=== PATIENT | female | born 1940 | race Caucasian/White ===

== ENCOUNTER → 2016-11-25 | Outpatient (CLI) | payer OTHER ==
[~2016-11-25] MED LIST: ALEN70TA4 PO; ATOR-24 PO; CIPR-255 PO; CLC100X PO; CYCL0.05 OPL; CYCL0.05 OPR; DIPH-437 PO; GABA-113 PO; SULF-183 PO
[2016-12-01 06:07] LABS: CREATININE UR 86 MG/DL (20-320)
== END | disposition home or self-care (01) ==
LOC: C.LAB 07:26 → EDSTATUS 11:11
PROVIDERS: ATTEND Psychiatry & Neurology Neurology
DX: G60.9 Hereditary and idiopathic neuropathy, unspecified (principal)

== ENCOUNTER 2020-07-27 23:37 | Inpatient (IN) ==
[2020-07-28 00:50] LABS: Basophils # (auto) 0.01 K/uL (0-0.2); Basophils % (auto) 0.1 %; Eosinophils # (auto) 0.05 K/uL (0-0.5); Eosinophils % (auto) 0.6 %; Hematocrit (blood only) 40.6 % (37-47); Hemoglobin 13.7 g/dL (12.0-16.0); Immature Granulocytes # (auto) 0.01 K/uL (0.00-0.02); Immature Granulocytes % (auto) 0.1 %; Lymphocytes # (auto) 1.18 K/uL (1.2-3.4); Lymphocytes % (auto) 13.2 %; Mean Corpuscular Hemoglobin 31.3 pg (25-34); Mean Corpuscular Hgb Conc 33.7 g/dL (32-36); Mean Corpuscular Volume 92.7 fL (80-100); Mean Platelet Volume 10.5 fL (7.4-10.4); Monocytes # (auto) 0.88 K/uL (0.11-0.59); Monocytes % (auto) 9.9 %; Neutrophils % (auto) 76.1 %; Platelet Count 203 K/uL (130-400); RDW Coefficient of Variation 13.5 % (11.5-14.5); RDW Standard Deviation 45.7 fL (36.4-46.3); Red Blood Count 4.38 M/uL (4.2-5.4); White Blood Count 8.93 K/uL (4.8-10.8)
[2020-07-28 01:02] LABS: INR 1.1 (0.9-1.1); Prothrombin Time 11.2 Seconds (9.0-12.0)
[2020-07-28 01:10] LABS: Albumin Level 3.8 gm/dl (3.4-5.0); BUN Creatinine Ratio 17.4 (10-20); Calcium 9.8 mg/dl (8.5-10.1); Creatinine Clr Calc Pharmacy 60.9 ml/min; Est GFR (African American) 82.4; Est GFR (Non-African American) 71.1
[2020-07-28 01:13] LABS: Albumin Globulin Ratio 1.1 (0.9-2); Bilirubin,Total 0.8 mg/dl (0.2-1); Globulin 3.6 gm/dl (2.5-4.0); Total Protein 7.4 gm/dl (6.4-8.2)
--- NOTE | 2020-07-28 02:48 | Emergency Department Note ---
History of Present Illness General Chief complaint: Fall Stated complaint: FALL Time Seen by Provider: 07/27/20 23:44 Source: patient Mode of arrival: EMS Limitations: no limitations History of Present Illness Provider complaint: Fall, leg weakness Onset (ago): hour(s) Location: lower extremity Radiation: proximal Severity: moderate Pain Consistency: + constant Maximum Pain Intensity: 5 Quality: + constant Relieved By: + none Exacerbated By: + movement Associated symptoms: + denies other symptoms Treatments prior to arrival: none This is a 79-year-old female presents emergency department with concern for leg weakness following a fall at home. Patient states she has a significant history of peripheral neuropathy and spinal stenosis. States over the last several days she has had some increased pain in the right lower extremity which she has been applying a heating pad to. She denies any other worsening neuropathy symptoms or worsening back pain. No recent fevers or chills, no abdominal pain. Patient states she follows with Dr. Dempsey of neurology. She does not currently follow with a capital markets specialist. She states she has never had a prior fall. She states she had been seated on the couch, applying a heating pad to her proximal right lower extremity in the area of pain, and when she went to stand up she felt as though her legs became weak and crumpled underneath her and she fell landing on her right side. She denies any head trauma or loss of consciousness. Patient is not anticoagulated. Patient denies any concern for pain or injury secondary to the fall. Denies saddle anesthesia or incontinence. Pt seen during a time of high acuity and national emergency pandemic while wearing PPE. Home Medications Medication Instructions Recorded Confirmed Type cyclosporine [Restasis] See Rx Instructions .ROUTE .COMPLEX 07/28/20 07/28/20 History diphenhydramine-acetaminophen 2 tab PO HS PRN 07/28/20 07/28/20 History [Tylenol PM Extra Strength] doxycycline hyclate 50 mg PO QPM 07/28/20 07/28/20 History fluocinonide 1 applic TOPICAL UD 07/28/20 07/28/20 History gabapentin 600 mg PO TID 07/28/20 07/28/20 History naproxen 500 mg PO BID PRN 07/28/20 07/28/20 History omega-3 fatty acids [Fish Oil] 1,000 mg PO DAILY 07/28/20 07/28/20 History rosuvastatin 10 mg PO DAILY 07/28/20 07/28/20 History timolol maleate 1 drp OPR DAILY 07/28/20 07/28/20 History tramadol 50 mg PO TID PRN 07/28/20 07/28/20 History Allergies Allergy/AdvReac Type Severity Reaction Status Date / Time prednisone AdvReac Intermediate DIZZINESS Verified 07/28/20 01:11 Past Med/Surg History Medical History Dyslipidemia Neurogenic claudication due to lumbar spinal stenosis Surgical History History of appendectomy History of hysterectomy History of wisdom tooth extraction Hx of tonsillectomy Family History Sister Neuropathy Social History Smoking Status: Former smoker Hx Alcohol Use: Yes Alcohol type: wine Hx Substance Use: No Preferred Language: Vietnamese Communication Ability: Effective Curtain Drier Required: No Beliefs That Will Affect Care: None Current Living Situation: Alone Other Information That Helps Us Care for You: No Feels Safe at Home: Yes Safety Concerns: Feels Safe At This Time Assistive Devices: None Review of Systems See HPI for pertinent positives & negatives. and A total of 10 systems reviewed and were otherwise negative Physical Exam Vital Signs Vital Signs - 24 hr 07/27/20 23:48 07/28/20 01:59 Temperature 36.9 C Temperature Source Oral Pulse Rate 76 Pulse Rate [Finger] 68 Respiratory Rate 18 18 Blood Pressure 164/88 H Blood Pressure [Left Arm] 147/74 H Blood Pressure Mean 113 Blood Pressure Mean [Left Arm] 98 Pulse Oximetry 95 96 Oxygen Delivery Method Room Air Sepsis Recent Fever Within 48 Hours No Sepsis New/Unexplained Change in Mental Status N/A Sepsis Action Taken by Nursing No Action Required GENERAL: alert, well appearing, well nourished, no distress, non-toxic HEAD: nc/at EYE EXAM: normal conjunctiva, PERRL and EOM's grossly intact OROPHARYNX: no exudate, no erythema, lips, buccal mucosa, and tongue normal and mucous membranes are moist NECK: supple, no nuchal rigidity, no adenopathy, non-tender, FROM LUNGS: Clear to auscultation. Normal chest wall mechanics, no w/r/r HEART: no murmurs, S1 normal and S2 normal ABDOMEN: abdomen soft, non-tender, normo-active bowel sounds, no masses, no rebound or guarding. BACK: Back is symmetrical on inspection and there is no deformity, no midline tenderness, no CVA tenderness. SKIN: no rashes and no bruising UPPER EXTREMITIES: upper extremities are grossly normal. FROM, nml pulses b/l. LOWER EXTREMITIES: No pitting edema. FROM, nml pulses b/l. Patient states while sensation is intact in bilateral lower extremities that is dull, which is chronic and related to her peripheral neuropathy. No pain with palpation over bilateral hips or with palpation of the lower extremities. 5/5 plantar and dorsiflexion. Pain with flexion of right hip in the proximal RLE in the same area she has been having pain. Compartments are soft. No joint effusions. NEURO EXAM: Normal sensorium, cranial nerves II-XII grossly intact, normal spe ech, no gross weakness of arms, no gross weakness of legs. Gross sensation intact. Course Course 0330: Patient updated on results. Discussed disposition. Administered Medications Doxycycline Hyclate (Doxycycline Hyclate 50 Mg Cap) 50 mg PO QPM [facility] Stop: 08/27/20 20:59 Last Admin: 07/29/20 19:43 Dose: 50 mg Documented by: [id number] Admin: 07/28/20 20:24 Dose: 50 mg Documented by: [id number] Gabapentin (Gabapentin 600 Mg Tab) 600 mg PO TID [facility] Stop: 08/27/20 08:59 Last Admin: 07/29/20 19:43 Dose: 600 mg Documented by: [id number] Admin: 07/29/20 17:24 Dose: Not Given Documented by: [id number] Admin: 07/29/20 08:26 Dose: 600 mg Documented by: [id number] Admin: 07/28/20 20:24 Dose: 600 mg Documented by: [id number] Admin: 07/28/20 13:17 Dose: 600 mg Documented by: [id number] Admin: 07/28/20 08:23 Dose: 600 mg Documented by: [id number] Cefazolin Sodium (Ancef 1000mg) 1,000 mg in 7.5 mls @ 150 mls/hr IV Q8H NICOLE; Protocol Stop: 07/30/20 05:32 Last Admin: 07/29/20 22:02 Dose: 150 mls/hr Documented by: [id number] Sodium Chloride (Nss 1000ml) 1,000 mls @ 100 mls/hr IV .Q10H NICOLE Stop: 08/28/20 17:20 Last Admin: 07/29/20 17:59 Dose: 100 mls/hr Documented by: [id number] Lidocaine (Lidocaine 5% 1 Patch) 1 patch TD QAM NICOLE Stop: 08/27/20 04:29 Last Admin: 07/29/20 08:25 Dose: Not Given Documented by: [id number] Admin: 07/28/20 05:00 Dose: 1 patch Documented by: [id number] Miscellaneous (Remove Lidoderm Patch) 1 ea N/A DAILY@2100 [facility] Stop: 08/27/20 16:29 Last Admin: 07/29/20 19:44 Dose: Not Given Documented by: [id number] Admin: 07/28/20 15:35 Dose: 1 ea Documented by: [id number] Oxycodone HCl (Oxycodone Hcl Ir 5 Mg Tab (Immediate Release)) 5 - 10 mg PO Q4H PRN PRN Reason: Moderate-Severe Pain & Pre PT Stop: 08/12/20 17:20 Last Admin: 07/29/20 22:10 Dose: 5 mg Documented by: [id number] Rosuvastatin Calcium (Rosuvastatin Calcium 10 Mg Tab) 10 mg PO DAILY [facility] Stop: 08/27/20 08:59 Last Admin: 07/29/20 08:26 Dose: 10 mg Documented by: [id number] Admin: 07/28/20 08:23 Dose: 10 mg Documented by: [id number] Senna/Docusate Sodium (Docusate Sodium/Senna 50/8.6mg Tab) 2 tab PO HS NICOLE Stop: 08/28/20 20:59 Last Admin: 07/29/20 19:42 Dose: 2 tab Documented by: [id number] Timolol Maleate (Timolol Gfs 0.5% Oph Soln 74 Drops/5 Ml Btl) 1 drops OPR DAILY NICOLE Stop: 08/27/20 08:59 Last Admin: 07/29/20 08:26 Dose: 1 drops Documented by: [id number] Admin: 07/28/20 08:23 Dose: 1 drops Documented by: [id number] Tramadol HCl (Tramadol Hcl 50 Mg Tablet) 50 - 100 mg PO Q4H PRN PRN Reason: Moderate-Severe Pain & Pre PT Stop: 08/28/20 17:20 Last Admin: 07/29/20 19:43 Dose: 100 mg Documented by: [id number] Discontinued Medications Bupivacaine HCl/Epinephrine Bitart (Bupivacaine/Epinephrine 0.5% Mpf 1:200,000 30 Ml Vial) Confirm Administered Dose 30 ml .ROUTE .STK-MED ONE Stop: 07/29/20 13:20 Last Admin: 07/29/20 14:28 Dose: 25 ml Documented by: [id number] Cefazolin Sodium (Cefazolin 250 Mg/Ml 1 Gm Vial) Confirm Administered Dose 1,000 mg .ROUTE .STK-MED ONE Stop: 07/29/20 13:20 Last Admin: 07/29/20 14:29 Dose: 1,000 mg Documented by: [id number] Cefazolin Sodium (Cefazolin 2,000 Mg/15 Ml Iv Push) Confirm Administered Dose 2,000 mg IV .[employer]-MED ONE Stop: 07/29/20 13:27 Last Admin: 07/29/20 13:38 Dose: Not Given Documented by: [id number] Dexamethasone (Dexamethasone Sod Inj 4 Mg/Ml Vial) 10 mg IV NOW STA Stop: 07/28/20 03:45 Last Admin: 07/28/20 04:17 Dose: 10 mg Documented by: [id number] Fentanyl Citrate (Fentanyl Citrate 100 Mcg/2 Ml Vial) 25 mcg IV Q5M PRN PRN Reason: PACU Use Only-Pain Stop: 07/29/20 21:37 Last Admin: 07/29/20 16:04 Dose: 50 mcg Documented by: [id number] Admin: 07/29/20 15:55 Dose: 50 mcg Documented by: [id number] Hydromorphone HCl (Hydromorphone Inj 1 Mg/Ml Syringe) 0.25 mg IV Q5M PRN PRN Reason: PACU Use Only-Pain Stop: 07/29/20 21:37 Last Admin: 07/29/20 16:42 Dose: 0.25 mg Documented by: [id number] Admin: 07/29/20 16:33 Dose: 0.25 mg Documented by: [id number] Admin: 07/29/20 16:28 Dose: 0.25 mg Documented by: [id number] Admin: 07/29/20 16:22 Dose: 0.25 mg Documented by: [id number] Admin: 07/29/20 16:16 Dose: 0.25 mg Documented by: [id number] Admin: 07/29/20 16:09 Dose: 0.25 mg Documented by: [id number] Cefazolin Sodium (Ancef 2000mg) 2,000 mg in 15 mls @ 3.75 mls/min IV PREOP ONE Stop: 07/29/20 13:34 Last Admin: 07/29/20 13:35 Dose: 3.75 mls/min Documented by: [id number] Miscellaneous (Restasis - Order Awaiting Action) 1 ea N/A QS NICOLE Stop: 08/27/20 07:59 Last Admin: 07/29/20 16:23 Dose: Not Given Documented by: [id number] Admin: 07/29/20 08:24 Dose: Not Given Documented by: [id number] Admin: 07/28/20 23:07 Dose: Not Given Documented by: [id number] Admin: 07/28/20 15:36 Dose: Not Given Documented by: [id number] Admin: 07/28/20 07:20 Dose: Not Given Documented by: [id number] Miscellaneous ( Floseal Hemostatic Matrix 10ml) 10 ml TOP ONCE ONE Stop: 07/29/20 14:30 Last Admin: 07/29/20 15:25 Dose: 13 ml Documented by: [id number] Pneumococcal Polyvalent Vaccine (Pneumococcal Polysaccharides 25 Mcg/0.5 Ml Vial/Syr) 25 mcg IM .ONCE ONE Stop: 07/28/20 06:51 Last Admin: 07/28/20 08:22 Dose: 25 mcg Documented by: [id number] Tramadol HCl (Tramadol Hcl 50 Mg Tablet) 25 - 50 mg PO Q4H PRN PRN Reason: Pain Stop: 08/27/20 06:42 Last Admin: 07/28/20 20:24 Dose: 50 mg Documented by: [id number] Admin: 07/28/20 15:31 Dose: 50 mg Documented by: [id number] Admin: 07/28/20 11:22 Dose: 50 mg Documented by: [id number] Medical Decision Making Differential Diagnosis Differential diagnoses include major intracranial, cervical, spinal, thoracic, abdominal, pelvic and neurologic injury. Fracture, contusion, sprain, strain, laceration, abrasions included as well. Medical Records Attestation: I reviewed the patient's medical records. Home Medications Current Medication List: was personally reviewed by me Laboratory Data Attestation: I reviewed the patient's lab results. Result diagrams: 07/28/20 00:36 07/28/20 00:36 Lab Results 07/28/20 07/28/20 07/28/20 Range/Units 00:36 00:36 00:36 WBC 8.93 (4.8-10.8) K/uL RBC 4.38 (4.2-5.4) M/uL Hgb 13.7 (12.0-16.0) g/dL Hct 40.6 (37-47) % MCV 92.7 (80-100) fL MCH 31.3 (25-34) pg MCHC 33.7 (32-36) g/dL RDW Std Deviation 45.7 (36.4-46.3) fL RDW Coeff of Ry 13.5 (11.5-14.5) % Plt Count 203 (130-400) K/uL MPV 10.5 H (7.4-10.4) fL Immature Gran % (Auto) 0.1 % Neut % (Auto) 76.1 % Lymph % (Auto) 13.2 % Webb % (Auto) 9.9 % Eos % (Auto) 0.6 % Baso % (Auto) 0.1 % Neut # (Auto) 6.80 H (1.4-6.5) K/uL Lymph # (Auto) 1.18 L (1.2-3.4) K/uL Webb # (Auto) 0.88 H (0.11-0.59) K/uL Eos # (Auto) 0.05 (0-0.5) K/uL Baso # (Auto) 0.01 (0-0.2) K/uL Immature Gran # (Auto) 0.01 (0.00-0.02) K/uL PT 11.2 (9.0-12.0) Seconds INR 1.1 (0.9-1.1) Sodium 137 (136-145) mmol/L Potassium 4.0 (3.5-5.1) mmol/L Chloride 104 (98-107) mmol/L Carbon Dioxide 28 (21-32) mmol/L Anion Gap 6.0 (3-11) BUN 14 (7-18) mg/dl Creatinine 0.80 (0.6-1.2) mg/dl Est Cr Clr Drug Dosing 60.9 ml/min Est GFR ( Amer) 82.4 Est GFR (Non-Af Amer) 71.1 BUN/Creatinine Ratio 17.4 (10-20) Glucose 114 H (70-99) mg/dl Estimat Average Glucose mg/dl Hemoglobin A1c (4.5-5.6) % Calcium 9.8 (8.5-10.1) mg/dl Magnesium 2.0 (1.8-2.4) mg/dl Total Bilirubin 0.8 (0.2-1) mg/dl AST 12 L (15-37) U/L ALT 13 (12-78) U/L Alkaline Phosphatase 82 (45-117) U/L Total Protein 7.4 (6.4-8.2) gm/dl Albumin 3.8 (3.4-5.0) gm/dl Globulin 3.6 (2.5-4.0) gm/dl Albumin/Globulin Ratio 1.1 (0.9-2) COVID-19 Eval Order SARS-CoV-2 (PCR) (Negative) Influenza Type A (PCR) (Neg) Influenza Type B (PCR) (Neg) RSV (RT-PCR) (Neg) 07/28/20 07/28/20 07/28/20 Range/Units 00:36 04:31 04:31 WBC (4.8-10.8) K/uL RBC (4.2-5.4) M/uL Hgb (12.0-16.0) g/dL Hct (37-47) % MCV (80-100) fL MCH (25-34) pg MCHC (32-36) g/dL RDW Std Deviation (36.4-46.3) fL RDW Coeff of Ry (11.5-14.5) % Plt Count (130-400) K/uL MPV (7.4-10.4) fL Immature Gran % (Auto) % Neut % (Auto) % Lymph % (Auto) % [place] % (Auto) % Eos % (Auto) % Baso % (Auto) % Neut # (Auto) (1.4-6.5) K/uL Lymph # (Auto) (1.2-3.4) K/uL Webb # (Auto) (0.11-0.59) K/uL Eos # (Auto) (0-0.5) K/uL Baso # (Auto) (0-0.2) K/uL Immature Gran # (Auto) (0.00-0.02) K/uL PT (9.0-12.0) Seconds INR (0.9-1.1) Sodium (136-145) mmol/L Potassium (3.5-5.1) mmol/L Chloride (98-107) mmol/L Carbon Dioxide (21-32) mmol/L Anion Gap (3-11) BUN (7-18) mg/dl Creatinine (0.6-1.2) mg/dl Est Cr Clr Drug Dosing ml/min Est GFR ( Amer) Est GFR (Non-Af Amer) BUN/Creatinine Ratio (10-20) Glucose (70-99) mg/dl Estimat Average Glucose 105 mg/dl Hemoglobin A1c 5.3 (4.5-5.6) % Calcium (8.5-10.1) mg/dl Magnesium (1.8-2.4) mg/dl Total Bilirubin (0.2-1) mg/dl AST (15-37) U/L ALT (12-78) U/L Alkaline Phosphatase (45-117) U/L Total Protein (6.4-8.2) gm/dl Albumin (3.4-5.0) gm/dl Globulin (2.5-4.0) gm/dl Albumin/Globulin Ratio (0.9-2) COVID-19 Eval Order CovFluRsv at [facility] SARS-CoV-2 (PCR) NEGATIVE (Negative) Influenza Type A (PCR) Negative (Neg) Influenza Type B (PCR) Negative (Neg) RSV (RT-PCR) Negative (Neg) Imaging Data Radiologist's Impression: MRI L-spine: Comparison: MRI lumbar spine 01/25/2019 At L4-L5, there is a mild grade 1 anterolisthesis, small posterior disc bulge, and progressive severe facet arthropathy/ligamentous hypertrophy with resulting moderate canal and moderate to severe bilateral lateral recess stenosis, which are progressed from prior. New bilateral facet joint effusions and mild edema in the right L5 superior articular facet. Findings suggest inflammatory arthropathy. Mild to moderate right and mild left foraminal stenosis. Degenerative changes with resulting canal and foraminal stenosis at other levels are similar to prior. Post L5-S1 right hemilaminectomy and grade 1 retrolisthesis of L5 on S1, similar to prior. No evidence of acute fracture. Radiologist: Franklin Baeza MD MDM Narrative This is a 79 yo female with a hx of spinal stenosis and peripheral neuropathy who presents with b/l LE weakness and a fall this evening. Pt with decreased sensation from neuropathy but feels that is stable. Did have increased proximal RLE pain over the last several days. Pt with ROM of legs. Given prior hx and presentation tonight, labs drawn and pt sent for MR lumbar spine. MRI reveals progression of prior findings likely explaining the recent RLE pain and b/l leg weakness. Pt without fever, abd pain, n/v. I do not suspect acute vascular etiology, or GI pathology. No DM. VS stable throughout. Discussed my concern with pt's current condition and results at bedside and discussed options of disposition. Pt in agreement with plan for additional inpt mgmt and likely need for spine and neurology consult. CAse discussed with hospitalist. An order was placed for continuous cardiac monitoring. The monitor shows a rate of 59__ with _sinus bradycardia_ rhythm. Impression & Plan Back pain, Lumbar radiculopathy, Peripheral neuropathy, Fall Discharge Plan Visit Data Chief Complaint: Fall Stated Complaint: FALL ED Provider: Cecilia Aguillon Discharge Problem: Back pain, Lumbar radiculopathy, Peripheral neuropathy, Fall Patient Disposition: Admitted As Inpatient Discharge Instructions Interventions: ED Discharge Assessment Last Done: 07/28/20 06:41 Discharge Problem: Back pain Qualifiers: Back pain location: low back pain Chronicity: chronic Back pain laterality: bilateral Sciatica presence: with sciatica Sciatica laterality: bilateral sciatica Qualified Code(s): M54.42 - Lumbago with sciatica, left side Peripheral neuropathy Qualifiers: Peripheral neuropathy type: polyneuropathy, unspecified Qualified Code(s): G62 .9 - Polyneuropathy, unspecified Fall Qualifiers: Encounter type: initial encounter Qualified Code(s): W19.XXXA - Unspecified fall, initial encounter
[2020-07-28] MEDS ORDERED: DEXAMETHASONE SOD INJ 4 MG/ML VIAL IV STA (03:44)
--- NOTE | 2020-07-28 04:48 | History & Physical Report ---
Date of Service July 28, 2020 Assessment & Plan (1) Lumbar radiculopathy: hx lumbar spinal stenosis/peripheral neuropathy as per records Worsening RLE weakness symptoms leading to fall Progressive disease with inflammation on initial MRI read. Situational hypertension Hyperglycemia rule out DM Past tobacco abuse OBS [facility] Orthopedic spine consult Re: Worsening lumbar radiculopathy, abnormal MRI Patient requests that [facility] contact her [facility] neurologist (Dr. Dempsey) to discuss case if surgery recommended. Analgesia Check hemoglobin A1c DVT prophylaxis. SCDs Re: Possible procedure Full code Text document was generated using [employer] voice recognition software. It may contain grammatical or spelling errors. Kindly contact undersigned for clarification of any documentation item in question. History of Present Illness Chief Complaint: Fall, right leg weakness Primary Care Provider: Jose Antonio Wilde MD History obtained from patient and records. Medical history significant for lumbar spinal stenosis status post surgery, peripheral neuropathy, past tobacco abuse. Patient has had chronic low back pain from lumbar spinal stenosis with superimposed lumbar radiculopathy for some time now. Neurogenic claudication limiting prolonged standing and walking. Patient seen [facility] neurology outpatient. 2 days ago, patient noted right leg weakness somewhat more than usual. Usual low back pain with some pain shooting down the right leg worse on motion. No fever, no chills. No unusual incontinence as per patient. Patient was trying to get out of her recliner last night when her legs gave out causing her to fall on her right side. No chest pain, no S OB, no headache, no LOC. Patient had trouble getting up. Patient brought to the ER for evaluation by EMS. IV Decadron administered at the ER. Medical History as above Surgical History : Appendectomy, carpal tunnel surgery, parathyroid adenoma resection, back surgery, cataract surgery, tonsillectomy, SHARRI Family History : Breast cancer, hypertension Personal/Social history : Past tobacco abuse, occasional EtOH intake, [employer] store employee Allergies Allergy/AdvReac Type Severity Reaction Status Date / Time prednisone AdvReac Intermediate DIZZINESS Verified 07/28/20 01:11 Home Medications Medication Instructions Recorded Confirmed Type cyclosporine [Restasis] See Rx Instructions .ROUTE .COMPLEX 07/28/20 07/28/20 History diphenhydramine-acetaminophen 2 tab PO HS PRN 07/28/20 07/28/20 History [Tylenol PM Extra Strength] doxycycline hyclate 50 mg PO QPM 07/28/20 07/28/20 History fluocinonide 1 applic TOPICAL UD 07/28/20 07/28/20 History gabapentin 600 mg PO TID 07/28/20 07/28/20 History naproxen 500 mg PO BID PRN 07/28/20 07/28/20 History omega-3 fatty acids [Fish Oil] 1,000 mg PO DAILY 07/28/20 07/28/20 History rosuvastatin 10 mg PO DAILY 07/28/20 07/28/20 History timolol maleate 1 drp OPR DAILY 07/28/20 07/28/20 History tramadol 50 mg PO TID PRN 07/28/20 07/28/20 History Past Med/Surg History Surgical History History of appendectomy History of hysterectomy History of wisdom tooth extraction Hx of tonsillectomy Family History Sister Neuropathy Social History Smoking Status: Former smoker Preferred Language: Guatemalan Feels Safe at Home: Yes Review of Systems Review of Systems: As per HPI, all 10 systems reviewed, all other ROS negative Physical Exam Physical Exam: GENERAL: Comfortable, pleasant, slightly hard of hearing, no respiratory distress SKIN: Normal color, warm HEENT: Bespectacled, [place] palpebral conjunctivae, no ptosis, moist buccal mucosa NECK : Supple, no tenderness CHEST : CTA, no tenderness HEART : RRR, no obvious murmurs ABDOMEN: Some distention, nontender BACK : low back tenderness, positive SLR right greater than the left EXTREMITIES : No LE swelling/tenderness, no other conspicuous deformities noted NEUROLOGIC : Coherent, no facial asymmetry, MMTS BUE 4/5, BLE 3/5 L>R, gait and stance not assessed Results & Data Results & Data ([facility]) Vital Signs (Past 12 Hours) Vital Signs Temp Pulse Pulse Resp BP BP Pulse Ox 07/28/20 04:18 64 16 131/75 97 07/28/20 01:59 68 18 147/74 H 96 07/27/20 23:48 36.9 C 76 18 164/88 H 95 Laboratory Results Laboratory Results WBC 8.93 K/uL (4.8-10.8) 07/28/20 00:36 RBC 4.38 M/uL (4.2-5.4) 07/28/20 00:36 Hgb 13.7 g/dL (12.0-16.0) 04 00:36 Hct 40.6 % (37-47) 07/28/20 00:36 MCV 92.7 fL (80-100) 07/28/20 00:36 MCH 31.3 pg (25-34) 07/28/20 00:36 MCHC 33.7 g/dL (32-36) 07/28/20 00:36 RDW Std Deviation 45.7 fL (36.4-46.3) 07/28/20 00:36 RDW Coeff of Ry 13.5 % (11.5-14.5) 07/28/20 00:36 Plt Count 203 K/uL (130-400) 07/28/20 00:36 MPV 10.5 fL (7.4-10.4) H 07/28/20 00:36 Immature Gran % (Auto) 0.1 % 07/28/20 00:36 Neut % (Auto) 76.1 % 07/28/20 00:36 Lymph % (Auto) 13.2 % 07/28/20 00:36 [place] % (Auto) 9.9 % 07/28/20 00:36 Eos % (Auto) 0.6 % 07/28/20 00:36 Baso % (Auto) 0.1 % 07/28/20 00:36 Neut # (Auto) 6.80 K/uL (1.4-6.5) H 07/28/20 00:36 Lymph # (Auto) 1.18 K/uL (1.2-3.4) L 07/28/20 00:36 [place] # (Auto) 0.88 K/uL (0.11-0.59) H 07/28/20 00:36 Eos # (Auto) 0.05 K/uL (0-0.5) 07/28/20 00:36 Baso # (Auto) 0.01 K/uL (0-0.2) 07/28/20 00:36 Immature Gran # (Auto) 0.01 K/uL (0.00-0.02) 07/28/20 00:36 PT 11.2 Seconds (9.0-12.0) 07/28/20 00:36 INR 1.1 (0.9-1.1) 07/28/20 00:36 Sodium 137 mmol/L (136-145) 07/28/20 00:36 Potassium 4.0 mmol/L (3.5-5.1) 07/28/20 00:36 Chloride 104 mmol/L (98-107) 07/28/20 00:36 Carbon Dioxide 28 mmol/L (21-32) 07/28/20 00:36 Anion Gap 6.0 (3-11) 07/28/20 00:36 BUN 14 mg/dl (7-18) 07/28/20 00:36 Creatinine 0.80 mg/dl (0.6-1.2) 07/28/20 00:36 Est Cr Clr Drug Dosing 60.9 ml/min 07/28/20 00:36 Est GFR ( Amer) 82.4 07/28/20 00:36 Est GFR (Non-Af Amer) 71.1 07/28/20 00:36 BUN/Creatinine Ratio 17.4 (10-20) 07/28/20 00:36 Glucose 114 mg/dl (70-99) H 07/28/20 00:36 Calcium 9.8 mg/dl (8.5-10.1) 07/28/20 00:36 Magnesium 2.0 mg/dl (1.8-2.4) 07/28/20 00:36 Total Bilirubin 0.8 mg/dl (0.2-1) 07/28/20 00:36 AST 12 U/L (15-37) L 07/28/20 00:36 ALT 13 U/L (12-78) 07/28/20 00:36 Alkaline Phosphatase 82 U/L (45-117) 07/28/20 00:36 Total Protein 7.4 gm/dl (6.4-8.2) 07/28/20 00:36 Albumin 3.8 gm/dl (3.4-5.0) 07/28/20 00:36 Globulin 3.6 gm/dl (2.5-4.0) 07/28/20 00:36 Albumin/Globulin Ratio 1.1 (0.9-2) 07/28/20 00:36 COVID-19 Eval Order CovFluRsv at [facility] 07/28/20 04:31 Diagnostic Findings MRI lumbar spine initial read: At L4-L5, there is mild grade 1 anterolisthesis, small posterior disc bulge, and progressive severe facet arthropathy/ligamentous hypertrophy with resulting moderate canal and moderate to severe bilateral lateral recess stenoses, which are progressed from prior. New bilateral facet joint effusions and mild edema in the right L5 superior articular facet. Findings suggest inflammatory arthropathy. Mild to moderate right and mild left foraminal stenosis. Degenerative changes with resulting canal and foraminal stenoses at other levels are similar to prior. Post L5-S1 right hemilaminectomy and grade 1 retrolisthesis of L5 on S1, similar to prior. No evidence of acute fracture.
[2020-07-28] MEDS: LIDOCAINE 5% 1 PATCH TD SCH (05:00)
[2020-07-28 05:20] LABS: Influenza A virus by PCR Negative (Neg); Influenza B virus by PCR Negative (Neg); RSV by PCR Negative (Neg); SARS CoV2 RNA(COVID-19) InHosp NEGATIVE (Negative)
[2020-07-28] MEDS ORDERED: MoRPHine SULFATE 4 MG/ML 1 ML CARP\\VIAL IV PRN (06:43)
[2020-07-28] MEDS ORDERED: ACETAMINOPHEN 325 MG TAB PO PRN (06:43)
[2020-07-28] MEDS ORDERED: LORazepam 0.25 MG/0.5 ML VIAL IV PRN (06:43)
[2020-07-28] MEDS ORDERED: PROMETHAZINE HCL 12.5 MG in SODIUM CHLORIDE 0.9% 50 ML IV PRN (06:43)
[2020-07-28 06:47] LABS: Estimated Average Glucose 105 mg/dl; Hemoglobin A1C 5.3 % (4.5-5.6)
[2020-07-28] MEDS ORDERED: PNEUMOCOCCAL ADMINISTRATION CHARGE ONE (06:50)
[2020-07-28] MEDS ORDERED: PNEUMOCOCCAL POLYSACCHARIDES 25 MCG/0.5 ML VIAL/SYR IM ONE (06:50)
--- NOTE | 2020-07-28 07:55 | Magnetic Resonance Report ---
MR lumbar spine wo con CLINICAL HISTORY: Back pain. Leg weakness. TECHNIQUE: Sagittal and axial T1, T2 and STIR images were obtained. COMPARISON STUDY: 01/25/2019 OBSERVATIONS: The vertebral bodies and posterior elements appear intact. There is no abnormal bony signal present t o suggest a marrow replacement process. L1-2: There is a circumferential disc bulge. There is no significant spinal or foraminal stenosis L2-3: There is a circumferential disc bulge. There is mild spinal stenosis. There is no significant f oraminal narrowing L3-4: There is a circumferential disc bulge. There is mild spinal stenosis. There is no significant f oraminal narrowing. L4-5: There is minimal anterolisthesis of L4 and L5. There is a circumferential disc bulge. There is facet joint ligamentous hypertrophy. There is moderate to severe spinal stenosis. The thecal sac jaylen ures 4.3 mm in AP diameter L5-S1: There is a circumferential disc bulge. There is no significant spinal stenosis. There is mild bilateral foraminal narrowing. Postsurgical changes are suspected with evidence of a prior right post erior hemilaminectomy The conus medullaris and cauda equina appear normal. IMPRESSION: 1. Multilevel spondylytic changes. The study is most significant for progressive moderate to severe s sarah stenosis at the L4-5 level. ACT 112: Negative or not required by law. Electronically signed by: Joel Arias M.D. 07/28/2020 7:53 AM
[2020-07-28] MEDS: TIMOLOL GFS 0.5% OPH SOLN 74 DROPS/5 ML BTL OPR SCH (08:23)
[2020-07-28] MEDS: ROSUVASTATIN CALCIUM 10 MG TAB PO SCH (08:23)
[2020-07-28] MEDS: GABAPENTIN 600 MG TAB PO SCH ×3 (08:23→20:24)
[2020-07-28] MEDS: traMADol HCL 50 MG TABLET PO PRN ×3 (11:22→20:24)
--- NOTE | 2020-07-28 14:47 | Electrocardiogram Report ---
Test Reason : Blood Pressure : / mmHG Vent. Rate : 078 BPM Atrial Rate : 078 BPM P-R Int : 150 ms QRS Dur : 088 ms QT Int : 378 ms P-R-T Axes : 070 062 047 degrees QTc Int : 430 ms Poor data quality, interpretation may be adversely affected Normal sinus rhythm Abnormal ECG When compared with ECG of 04-DEC-2002 09:08, No significant change was found Confirmed by Petar Dale ([id number]) on 07/28/2020 2:47:44 PM Referred By: REFERRED SELF Confirmed By:Petar Dale
--- NOTE | 2020-07-28 15:34 | Orthopedic Consultation ---
Date of Consultation July 28, 2020 Assessment & Plan (1) Neurogenic claudication due to lumbar spinal stenosis: Patient's MRI does demonstrate worsening lumbar spinal stenosis. She has spondylolisthesis at L4-L5 to space collapse L5-S1 with retrolisthesis and central disc protrusion. She has severe central lateral recess disease at L4-L5 with obvious instability. She is noted significant decline over the past year she is interested in surgical invention. This would require a lumbar decompression and fusion L4-5 possibly L5-S1. Risk benefits pros cons and alternatives were outlined in detail. Risk include but not limited to anesthesia blindness stroke paralysis nerve damage blood loss requiring transfusion infection requiring reoperation postop with a marked improvement of her neurogenic claudication. At this time we will make her n.p.o. after midnight we will plan for surgery tomorrow. Present on Admission?: Yes History of Present Illness Reason for Consultation: Back and bilateral leg pain with weakness Attending Physician: Ruma Marley MD History of Present Illness Is a very pleasant 79-year-old female that presents with marked weakness in her lower extremities. She fell recently as her right leg gave way. She notes history of inability to stand and ambulate for any distance secondary to bilateral leg pain and weakness. She must sit regularly to obtain relief. Allergies Allergy/AdvReac Type Severity Reaction Status Date / Time prednisone AdvReac Intermediate DIZZINESS Verified 07/28/20 01:11 Home Medications Medication Instructions Recorded Confirmed Type cyclosporine [Restasis] See Rx Instructions .ROUTE .COMPLEX 07/28/20 07/28/20 History diphenhydramine-acetaminophen 2 tab PO HS PRN 07/28/20 07/28/20 History [Tylenol PM Extra Strength] doxycycline hyclate 50 mg PO QPM 07/28/20 07/28/20 History fluocinonide 1 applic TOPICAL UD 07/28/20 07/28/20 History gabapentin 600 mg PO TID 07/28/20 07/28/20 History naproxen 500 mg PO BID PRN 07/28/20 07/28/20 History omega-3 fatty acids [Fish Oil] 1,000 mg PO DAILY 07/28/20 07/28/20 History rosuvastatin 10 mg PO DAILY 07/28/20 07/28/20 History timolol maleate 1 drp OPR DAILY 04/26/21 04/26/21 History tramadol 50 mg PO TID PRN 07/28/20 07/28/20 History Patient History Surgical History History of appendectomy History of hysterectomy History of wisdom tooth extraction Hx of tonsillectomy Family History Sister Neuropathy Social History Smoking Status: Former smoker Hx Alcohol Use: Yes Alcohol type: wine Hx Substance Use: No Preferred Language: [place] Communication Ability: 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 She does exhibits plus out of 5 plantar flexion dorsiflexion quadriceps bilaterally. She does have peripheral neuropathy and some numbness to the feet bilaterally. She has no gross tension signs. Deep tendon reflexes are diminished. Results & Data ([facility]) Vital Signs (Past 12 Hours) Vital Signs Temp Pulse Pulse Resp BP BP Pulse Ox 07/28/20 12:00 36.6 C 62 18 122/71 94 07/28/20 09:59 65 07/28/20 06:43 37.0 C 67 18 158/83 H 97 07/28/20 06:23 62 16 141/81 H 94 07/28/20 05:02 64 16 145/69 H 96 07/28/20 04:18 64 16 131/75 97
--- NOTE | 2020-07-28 16:24 | Anesthesiology Consultation ---
Date of Service July 28, 2020 Assessment & Plan Chart Review Chart Review: Acceptable Risk for Surgery and Patient NOT seen in Pre Admission Testing History Surgery Operation Date: 07/29/20 13:45 Proposed Procedures p L4-L5 Possible L5-S1 Lumbar Decompression Fusion - Dany Chau DO Height/Weight Height: 5 ft 4 in Weight: 69.853 kg Allergies Allergy/AdvReac Type Severity Reaction Status Date / Time prednisone AdvReac Intermediate DIZZINESS Verified 07/28/20 01:11 Medications Home Medications Medication Instructions Recorded Confirmed Last Taken cyclosporine [Restasis] See Rx Instructions .ROUTE .COMPLEX 07/28/20 07/28/20 Unknown diphenhydramine-acetaminophen 2 tab PO HS PRN 07/28/20 07/28/20 Unknown [Tylenol PM Extra Strength] doxycycline hyclate 50 mg PO QPM 07/28/20 07/28/20 Unknown fluocinonide 1 applic TOPICAL UD 07/28/20 07/28/20 Unknown gabapentin 600 mg PO TID 07/28/20 07/28/20 Unknown naproxen 500 mg PO BID PRN 07/28/20 07/28/20 Unknown omega-3 fatty acids [Fish Oil] 1,000 mg PO DAILY 07/28/20 07/28/20 Unknown rosuvastatin 10 mg PO DAILY 07/28/20 07/28/20 Unknown timolol maleate 1 drp OPR DAILY 07/28/20 07/28/20 Unknown tramadol 50 mg PO TID PRN 07/28/20 07/28/20 Unknown Active Medications Generic Name Dose Route Start Last Admin Trade Name Freq PRN Reason Stop Dose Admin Gabapentin 600 mg 07/28/20 09:00 07/28/20 13:17 Gabapentin 600 Mg Tab PO 08/27/20 08:59 600 mg TID NICOLE Administration Lidocaine 1 patch 07/28/20 04:30 07/28/20 05:00 Lidocaine 5% 1 Patch TD 08/27/20 04:29 1 patch QAM NICOLE Administration Miscellaneous 1 ea 07/28/20 16:30 07/28/20 15:35 Remove Lidoderm Patch N/A 08/27/20 16:29 1 ea DAILY@2100 NICOLE Administration Miscellaneous 1 ea 07/28/20 08:00 07/28/20 15:36 Restasis - Order Awaiting Action N/A 08/27/20 07:59 Not Given QS NICOLE Rosuvastatin Calcium 10 mg 07/28/20 09:00 07/28/20 08:23 Rosuvastatin Calcium 10 Mg Tab PO 08/27/20 08:59 10 mg DAILY NICOLE Administration Timolol Maleate 1 drops 07/28/20 09:00 07/28/20 08:23 Timolol Gfs 0.5% Oph Soln 74 Drops/5 Ml Btl OPR 08/27/20 08:59 1 drops DAILY NICOLE Administration Tramadol HCl 25 - 50 mg 07/28/20 06:43 07/28/20 15:31 Tramadol Hcl 50 Mg Tablet PO 08/27/20 06:42 50 mg Q4H PRN Administration Pain Past Family History Family History Sister Neuropathy Past Surgical History Surgical History History of appendectomy History of hysterectomy History of wisdom tooth extraction Hx of tonsillectomy Social History Smoking Status: Former smoker Hx Alcohol Use: Yes Alcohol type: wine alcohol intake frequency: a few times a month Hx Substance Use: No Physical Exam Vital Signs Last Vital Signs Temp 36.6 C 07/28/20 16:06 Pulse 75 07/28/20 16:06 Resp 20 07/28/20 16:06 BP 122/69 07/28/20 16:06 Pulse Ox 93 07/28/20 16:06 Testing Laboratory Results 07/28/20 00:36 07/28/20 00:36 PT 11.2 Seconds (9.0-12.0) 07/28/20 00:36 INR 1.1 (0.9-1.1) 07/28/20 00:36 Hemoglobin A1c 5.3 % (4.5-5.6) 07/28/20 00:36
--- NOTE | 2020-07-28 16:37 | Communication Note ---
Date of Service: July 28, 2020 Currently resting comfortably. Reports pain is currently okay. Appreciate orthopedics input. Plan to go for surgical intervention tomorrow.
[2020-07-28] MEDS: DOXYCYCLINE HYCLATE 50 MG CAP PO SCH (20:24)
--- NOTE | 2020-07-29 08:18 | Anesthesiology Consultation ---
Date of Service July 29, 2020 Assessment & Plan (1) Encounter for pre-operative examination: Chart Review Chart Review: Acceptable Risk for Surgery and Patient NOT seen in Pre Admission Testing Consults Requested none History Surgery Operation Date: 07/29/20 13:45 Proposed Procedures p L4-L5 Possible L5-S1 Lumbar Decompression Fusion - Dany Chau DO Height/Weight Height: 5 ft 4 in Weight: 69.853 kg Allergies Allergy/AdvReac Type Severity Reaction Status Date / Time prednisone AdvReac Intermediate DIZZINESS Verified 07/28/20 01:11 Medications Home Medications Medication Instructions Recorded Confirmed Last Taken cyclosporine [Restasis] See Rx Instructions .ROUTE .COMPLEX 07/28/20 07/28/20 Unknown diphenhydramine-acetaminophen 2 tab PO HS PRN 07/28/20 07/28/20 Unknown [Tylenol PM Extra Strength] doxycycline hyclate 50 mg PO QPM 07/28/20 07/28/20 Unknown fluocinonide 1 applic TOPICAL UD 07/28/20 07/28/20 Unknown gabapentin 600 mg PO TID 07/28/20 07/28/20 Unknown naproxen 500 mg PO BID PRN 07/28/20 07/28/20 Unknown omega-3 fatty acids [Fish Oil] 1,000 mg PO DAILY 07/28/20 07/28/20 Unknown rosuvastatin 10 mg PO DAILY 07/28/20 07/28/20 Unknown timolol maleate 1 drp OPR DAILY 07/28/20 07/28/20 Unknown tramadol 50 mg PO TID PRN 07/28/20 07/28/20 Unknown Active Medications Generic Name Dose Route Start Last Admin Trade Name Raymundoq PRN Reason Stop Dose Admin Doxycycline Hyclate 50 mg 07/28/20 21:00 07/28/20 20:24 Doxycycline Hyclate 50 Mg Cap PO 08/27/20 20:59 50 mg QPM NICOLE Administration Gabapentin 600 mg 07/28/20 09:00 07/28/20 20:24 Gabapentin 600 Mg Tab PO 08/27/20 08:59 600 mg TID NICOLE Administration Lidocaine 1 patch 07/28/20 04:30 07/28/20 05:00 Lidocaine 5% 1 Patch TD 08/27/20 04:29 1 patch QAM NICOLE Administration Miscellaneous 1 ea 07/28/20 16:30 07/28/20 15:35 Remove Lidoderm Patch N/A 08/27/20 16:29 1 ea DAILY@2100 NICOLE Administration Miscellaneous 1 ea 07/28/20 08:00 07/28/20 23:07 Restasis - Order Awaiting Action N/A 08/27/20 07:59 Not Given QS NICOLE Rosuvastatin Calcium 10 mg 07/28/20 09:00 07/28/20 08:23 Rosuvastatin Calcium 10 Mg Tab PO 08/27/20 08:59 10 mg DAILY NICOLE Administration Timolol Maleate 1 drops 07/28/20 09:00 07/28/20 08:23 Timolol Gfs 0.5% Oph Soln 74 Drops/5 Ml Btl OPR 08/27/20 08:59 1 drops DAILY NICOLE Administration Tramadol HCl 25 - 50 mg 07/28/20 06:43 07/28/20 20:24 Tramadol Hcl 50 Mg Tablet PO 08/27/20 06:42 50 mg Q4H PRN Administration Pain Past Medical History Medical History Dyslipidemia Neurogenic claudication due to lumbar spinal stenosis Past Family History Family History Sister Neuropathy Past Surgical History Surgical History History of appendectomy History of hysterectomy History of wisdom tooth extraction Hx of tonsillectomy Social History Smoking Status: Former smoker Hx Alcohol Use: Yes Alcohol type: wine alcohol intake frequency: a few times a month Hx Substance Use: No Physical Exam Vital Signs Last Vital Signs Temp 36.5 C 07/29/20 07:23 Pulse 57 L 07/29/20 07:23 Resp 16 07/29/20 07:23 BP 144/79 H 07/29/20 07:23 Pulse Ox 96 07/29/20 07:23 Testing Laboratory Results 07/28/20 00:36 07/28/20 00:36 PT 11.2 Seconds (9.0-12.0) 07/28/20 00:36 INR 1.1 (0.9-1.1) 07/28/20 00:36 Hemoglobin A1c 5.3 % (4.5-5.6) 07/28/20 00:36 Electrocardiogram Date: 07/28/20 Findings: + NSR @ (78) ST and T wave abnormality similar to 2003 EKG
[2020-07-29] MEDS: LIDOCAINE 5% 1 PATCH TD SCH (08:25)
[2020-07-29] MEDS: ROSUVASTATIN CALCIUM 10 MG TAB PO SCH (08:26)
[2020-07-29] MEDS: TIMOLOL GFS 0.5% OPH SOLN 74 DROPS/5 ML BTL OPR SCH (08:26)
[2020-07-29] MEDS: GABAPENTIN 600 MG TAB PO SCH ×3 (08:26→19:43)
[2020-07-29] MEDS ORDERED: LIDOCAINE HCL 2% 2 ML VIAL/AMP(20MG/ML) INFIL ONE (12:53)
[2020-07-29] MEDS ORDERED: ONDANSETRON INJ 2 MG/ML 2 ML VIAL ONE (12:53)
[2020-07-29] MEDS ORDERED: ROCURONIUM BROMIDE 10 MG/ML 5 ML VIAL IV ONE (12:53)
[2020-07-29] MEDS ORDERED: fentaNYL citrate 100 MCG/2 ML VIAL ONE (12:53)
[2020-07-29] MEDS ORDERED: PROPOFOL IV EMULSION 10 MG/ML 20 ML VIAL IV ONE (12:53)
[2020-07-29] MEDS ORDERED: BUPIVACAINE/EPINEPHRINE 0.5% MPF 1:200,000 30 ML VIAL ONE (13:19)
--- NOTE | 2020-07-29 13:24 | History & Physical Bridge Note ---
Date of Service July 29, 2020 History & Physical Bridge Note I have examined the patient, reviewed the History & Physical and in the interval since the performance of the History & Physical I have noted the following changes of clinical significance: no changes noted Lumbar decompression fusion L4-5, possible L5-S1
[2020-07-29] MEDS ORDERED: ceFAZolin 2,000 MG/15 ML IV PUSH IV ONE (13:26)
[2020-07-29] MEDS ORDERED: ceFAZolin 2000MG 2,000 MG/15 ML SYR IV ONE (13:31)
[2020-07-29] MEDS ORDERED: ePHEDrine sulfate 50 MG/ML AMP IV PRN (13:37)
[2020-07-29] MEDS ORDERED: MEPERIDINE HCL 25 MG/ML CARP/VIAL IV PRN (13:37)
[2020-07-29] MEDS ORDERED: ATROPINE SULFATE 0.1 MG/ML 10ML SYR IV PRN (13:37)
[2020-07-29] MEDS ORDERED: ONDANSETRON INJ 2 MG/ML 2 ML VIAL IV PRN ×2 (13:37→17:21)
[2020-07-29] MEDS ORDERED: LABETALOL HCL IV 5 MG/ML 20ML IV PRN (13:37)
[2020-07-29] MEDS ORDERED: PHENYLEPHRINE 100MCG/ML 5ML SYR IV PRN (13:37)
--- NOTE | 2020-07-29 14:14 | Hospitalist Progress Note ---
Date of Service July 29, 2020 Assessment & Plan (1) Lumbar radiculopathy: hx lumbar spinal stenosis/peripheral neuropathy as per records Worsening RLE weakness symptoms leading to fall Progressive disease with inflammation on initial MRI read. Situational hypertension Hyperglycemia rule out DM Past tobacco abuse Appreciate orthopedics input. Want to go for lumbar decompression and fusion L4-L5 and possibly L5-S1 today. Remains NPO. Morphine and Dilaudid for pain control. DVT prophylaxis. SCDs Re: Possible procedure Full code Text document was generated using [email or web address] voice recognition software. It may contain grammatical or spelling errors. Kindly contact undersigned for clarification of any documentation item in question. Admission and Anticipated Discharge Date Admission Date: July 28, 2020 Subjective Patient comfortably. Reports the pain is currently well controlled. States only hurts if she gets up and moves around. Rest of the review of system is negative. Remains n.p.o., plan to go for surgery this afternoon. Review of Systems Review of Systems: All systems reviewed & are unremarkable except as noted in HPI & below Physical Exam Physical Exam: General: A&Ox3 HENT: NCAT, MMM, EOMI Eyes: PERRLA Neck: Supple, normal range of motion CVS: normal rate and rhythm Resp: b/l good breath sounds Abdomen: Soft, ND/NT Extremities: No c/c/e Neuro: face symmetric, no focal deficit Skin: warm and dry MSK: no joint swelling/erythema Results & Data Results & Data ([facility]) Vital Signs (Past 12 Hours) Vital Signs Temp Pulse Resp BP BP Pulse Ox 07/29/20 13:14 36.7 C 70 16 166/82 H 97 07/29/20 07:23 36.5 C 57 L 16 144/79 H 96
[2020-07-29] MEDS ORDERED: FLOSEAL HEMOSTATIC MATRIX 10ML TOP ONE (14:29)
[2020-07-29] MEDS ORDERED: GLYCOPYRROLATE 0.2 MG/ML VIAL ONE (15:19)
[2020-07-29] MEDS ORDERED: NEOSTIGMINE METHYLSULFATE 5 MG/5 ML SYR ONE (15:19)
--- NOTE | 2020-07-29 15:28 | Operative Report ---
Post Operative Report Pre & Post Diagnosis Operation Date: 07/29/20 13:45 Pre-Op Diagnosis: Neurogenic claudication due to lumbar spinal stenosis Spondylolisthesis L4-L5 Post-Op Diagnosis: Same I identified the patient and participated in the time-out.: Yes Procedure Operation Date: 07/29/20 13:45 Actual Procedures #1 lumbar decompression with bilateral medial facetectomies and foraminotomies L3-4, L4-5 and L5-S1. #2 posterior spinal fusion L4-5 L5-S1. #3 placement posterior instrumentation L4-5 L5-S1. #4 interbody fusion L4-5 L5-S1. #5 placement of peek cage 14 x 26 mm at L4-5 and 11 x 26 mm at L4-5 S1. #6 placement of infuse collagen sponge, master graft and local autograft in the posterior gutters. Placement of I factor and interbody spaces. #7 placement of locally harvested morselized autograft in the posterior lateral gutters. Surgeon Dany Chau, Hazmat Tanker Driver Alona Mosher Estimated Blood Loss 150 Findings Consistent with Post-Op Diagnosis Specimens None Indications This is a 79-year-old female the presents the emergency room with marked decline in status inability to ambulate with weakness and bilateral leg pain. Subsequently she is here for urgent decompression fusion. Description of Procedure Patient was met with identified informed consent obtained. Patient was then taken to the operative suite underwent ablation placed in prone position Herson table top Silviano frame. All bony prominences well-padded eyes inspected to ensure no external pressure placed upon the. This point the lumbar spine was prepped and draped in a sterile fashion. Sharp dissection with the assistance of Bovie cartilage from down to and exposing the lamina and transverse processes of L4-L5 and sacral ala bilaterally. From caudal cephalad fashion complete laminectomy L5 L4 and partial laminectomy L3 was performed including bilateral medial facetectomies and foraminotomies addressing severe spinal stenosis. Pedicle screws were then placed in L4-L5 and S1 levels bilaterally with assistance of fluoroscopy and the proper sized lanie placed. By way the tra nsforaminal portion right complete discectomy of L5-S1 was performed endplates curetted to subcortical bleeding bone and a 8 x 22 mm peek cage filled with I factor tapped in position. Then proceeded L4-L5 and again by way of a transforaminal approach on right a complete discectomy was performed endplates curetted to subcortically bone and a 12 x 22 mm peek cage filled with I factor tapped in position. The rods were then locked in final position bilaterally. Transverse processes of L4-L5 and sacral ala burred to subcortical bleeding bone. Infuse collagen sponge master graft local autograft was placed in the posterior gutters. 15 round JUSTIN drain inserted. The incision was then closed with 1 Vicryl in the fascia 2-0 Vicryl subcutaneously and 4 Monocryl for final skin closure. Steri-Strip sterile dressings placed. Patient will continue PACU stable condition. Please note spinal cord monitoring was utilized at the procedure no changes noted. Lastly Alona Mosher was present at the entire surgery involved the patient positioning complex portions of the surgery and final skin closure. I attest to the content of the Intraoperative Record and any orders documented therein. Any exceptions are noted below.
--- NOTE | 2020-07-29 15:40 | Fluoroscopy Report ---
FL lumbar spine 2-3V CLINICAL HISTORY: L4-L5 DECOMPRESSION AND FUSION COMPARISON STUDY: MRI dated 07/28/2020 FLUOROSCOPY TIME: 35 seconds. NUMBER OF FLUOROSCOPIC IMAGES: 2 FINDINGS: 2 intraoperative fluoroscopic spot images reveal postsurgical changes of discectomies inter body fusions at the L4-5 and L5-S1 levels. There is posterior spinal fixation with L4-S1 pedicle scre ws and adjoining spinal rods IMPRESSION: Postsurgical changes of an L4-S1 spinal decompression and fusion. ACT 112: Negative or not required by law. Electronically signed by: Joel Arias M.D. 07/29/2020 3:38 PM
[2020-07-29] MEDS: fentaNYL citrate 100 MCG/2 ML VIAL IV PRN ×2 (15:55→16:04)
[2020-07-29] MEDS ORDERED: fentaNYL citrate 100 MCG/2 ML VIAL IV PRN (16:00)
[2020-07-29] MEDS: HYDROmorphone INJ 1 MG/ML SYRINGE IV PRN ×6 (16:09→16:42)
--- NOTE | 2020-07-29 16:27 | Anesthesiology Progress Note ---
Date of Service July 29, 2020 Anesthesia Post Procedure Vital Signs Vital Signs: Temp Pulse Pulse Pulse Resp BP BP 07/29/20 16:25 51 L 12 153/89 H 07/29/20 16:15 55 L 12 145/97 H 07/29/20 16:05 66 13 143/83 H 07/29/20 15:55 69 16 179/96 H 07/29/20 15:49 96.8 F L 71 15 139/99 07/29/20 13:14 98.1 F 70 16 166/82 H 07/29/20 07:23 97.7 F 57 L 16 144/79 H 07/28/20 23:36 98.1 F 73 16 157/69 H 07/28/20 22:43 97.9 F 66 16 115/73 07/28/20 19:33 97.9 F 69 18 129/73 07/28/20 17:47 77 Pulse Ox 07/29/20 16:25 99 07/29/20 16:15 100 07/29/20 16:05 100 07/29/20 15:55 100 07/29/20 15:49 100 07/29/20 13:14 97 07/29/20 07:23 96 07/28/20 23:36 96 07/28/20 22:43 96 07/28/20 19:33 95 07/28/20 17:47 Pain Intensity Upper Back: Pain Intensity: 3 Transfer of Care Handoff Completed per policy Notes Mental Status: alert / awake / arousable and participated in evaluation Patient Amnestic to Procedure: Yes Nausea / Vomiting: adequately controlled Pain: adequately controlled Airway Patency, RR, SpO2: stable & adequate BP & HR: stable & adequate Hydration State: stable & adequate Anesthetic Complications: no major complications apparent and Pt Satisfied with anesthetic care
[2020-07-29] MEDS ORDERED: DO NOT ADMINISTER PNEUMOCOCCAL VACCINE PRN (17:21)
[2020-07-29] MEDS ORDERED: PROMETHAZINE HCL 12.5 MG in SODIUM CHLORIDE 0.9% 50 ML IV PRN (17:21)
[2020-07-29] MEDS ORDERED: ALUMINUM/MAGNESIUM SUSP 30 ML UDC PO PRN (17:21)
[2020-07-29] MEDS ORDERED: diphenhydrAMINE Capsule 25 MG CAP PO PRN (17:21)
[2020-07-29] MEDS ORDERED: ACETAMINOPHEN 500 MG TAB PO PRN (17:21)
[2020-07-29] MEDS ORDERED: FAMOTIDINE 20 MG TAB PO PRN (17:21)
[2020-07-29] MEDS ORDERED: MAGNESIUM HYDROXIDE SUSP 30 ML UDC PO PRN (17:21)
[2020-07-29] MEDS ORDERED: HYDROmorphone INJ 1 MG/ML SYRINGE IV PRN (17:21)
[2020-07-29] MEDS ORDERED: METOCLOPRAMIDE HCL INJ 5 MG/ML 2 ML VIAL IV PRN (17:21)
[2020-07-29] MEDS ORDERED: LORazepam 0.5 MG/1 ML VIAL IV PRN (17:21)
[2020-07-29] MEDS ORDERED: ACETAMINOPHEN 1,000 MG/100 ML VIAL IV PRN (17:21)
[2020-07-29] MEDS ORDERED: SOD PHOSPHATE/SOD BIPHOSPHATE ENEMA 132 ML BTL PR PRN (17:21)
[2020-07-29] MEDS ORDERED: LORazepam 0.5 MG TAB PO PRN (17:21)
[2020-07-29] MEDS ORDERED: HYDROmorphone INJ 0.5 MG/0.5 ML SYR IV PRN (17:21)
[2020-07-29] MEDS ORDERED: bisacodyL 10 MG SUPP PR PRN (17:21)
[2020-07-29] MEDS ORDERED: NALOXONE HCL 0.4 MG/1 ML VIAL/CARP IV PRN (17:21)
[2020-07-29] MEDS ORDERED: DO NOT ADMINISTER FLU VACCINE PRN (17:21)
[2020-07-29] MEDS ORDERED: ONDANSETRON 4 MG OD TAB PO PRN (17:21)
[2020-07-29] MEDS ORDERED: hydrOXYzine HCl 25 MG TAB PO PRN (17:21)
[2020-07-29] MEDS: SODIUM CHLORIDE 0.9% 1000ML 1,000 ML IV SCH (17:59)
[2020-07-29] MEDS: DOCUSATE SODIUM/SENNA 50/8.6MG TAB PO SCH (19:42)
[2020-07-29] MEDS: DOXYCYCLINE HYCLATE 50 MG CAP PO SCH (19:43)
[2020-07-29] MEDS: traMADol HCL 50 MG TABLET PO PRN (19:43)
[2020-07-29] MEDS: ceFAZolin 1000MG 1,000 MG/7.5 ML SYR IV SCH (22:02)
[2020-07-29] MEDS: oxyCODONE HCL IR 5 MG TAB (IMMEDIATE RELEASE) PO PRN (22:10)
[2020-07-30] MEDS: ceFAZolin 1000MG 1,000 MG/7.5 ML SYR IV SCH (04:38)
[2020-07-30] MEDS: SODIUM CHLORIDE 0.9% 1000ML 1,000 ML IV SCH (04:39)
[2020-07-30] MEDS: traMADol HCL 50 MG TABLET PO PRN ×2 (04:39→20:16)
[2020-07-30] MEDS: POLYETHYLENE (MIRALAX) 17 GM PACK PO SCH ×4 (05:58→22:54)
[2020-07-30 07:50] LABS: Hematocrit (blood only) 33.4 % (37-47); Hemoglobin 11.5 g/dL (12.0-16.0); Immature Granulocytes # (auto) 0.01 K/uL (0.00-0.02); Immature Granulocytes % (auto) 0.1 %; Lymphocytes # (auto) 1.04 K/uL (1.2-3.4); Lymphocytes % (auto) 12.7 %; Mean Corpuscular Hemoglobin 31.4 pg (25-34); Mean Corpuscular Hgb Conc 34.4 g/dL (32-36); Mean Corpuscular Volume 91.3 fL (80-100); Mean Platelet Volume 10.5 fL (7.4-10.4); Monocytes # (auto) 0.93 K/uL (0.11-0.59); Monocytes % (auto) 11.3 %; Neutrophils # (auto) 6.24 K/uL (1.4-6.5); Neutrophils % (auto) 75.9 %; Platelet Count 185 K/uL (130-400); RDW Coefficient of Variation 13.3 % (11.5-14.5); RDW Standard Deviation 44.4 fL (36.4-46.3); Red Blood Count 3.66 M/uL (4.2-5.4); White Blood Count 8.22 K/uL (4.8-10.8)
[2020-07-30] MEDS: oxyCODONE HCL IR 5 MG TAB (IMMEDIATE RELEASE) PO PRN ×4 (07:50→22:54)
[2020-07-30] MEDS: GABAPENTIN 600 MG TAB PO SCH ×3 (07:51→20:16)
[2020-07-30] MEDS: ROSUVASTATIN CALCIUM 10 MG TAB PO SCH (07:52)
[2020-07-30] MEDS: TIMOLOL GFS 0.5% OPH SOLN 74 DROPS/5 ML BTL OPR SCH (07:52)
[2020-07-30] MEDS: LIDOCAINE 5% 1 PATCH TD SCH (07:52)
[2020-07-30 08:31] LABS: BUN Creatinine Ratio 27.7 (10-20); Creatinine Clr Calc Pharmacy 75.3 ml/min; Est GFR (African American) 101.9; Est GFR (Non-African American) 87.9; Potassium 4.2 mmol/L (3.5-5.1)
--- NOTE | 2020-07-30 13:20 | Orthopedic Progress Note ---
Date of Service July 30, 2020 Assessment & Plan (1) Neurogenic claudication due to lumbar spinal stenosis: Admission and Anticipated Discharge Date Admission Date: July 28, 2020 This time encouraged her to get out of bed and sit in a chair for all meals. Also to initiate physical therapy. We will monitor JUSTIN output hopefully discharge home in the next few days. Subjective Patient complaining primarily of back pain. She has resolution of all leg pain. Physical Exam Physical Exam: Patient is in bed. She has good strength testing lower extremities. Results & Data ([facility]) Vital Signs (Past 12 Hours) Vital Signs Temp Pulse Pulse Resp BP Pulse Ox 07/30/20 11:00 94 07/30/20 07:14 36.8 C 65 16 109/63 92 07/30/20 03:33 36.6 C 62 16 114/66 98
--- NOTE | 2020-07-30 14:19 | Hospitalist Progress Note ---
Date of Service July 30, 2020 Assessment & Plan (1) Lumbar radiculopathy: hx lumbar spinal stenosis/peripheral neuropathy as per records Status post lumbar decompression and fusion surgery Postoperative day 1 Appreciate orthopedics input. Patient has been recovering well on post surgery, back pain /radicular pain has significantly improved after surgery Acute blood loss anemia: Hemoglobin drop noted from 1311 Secondary to postoperative status Patient denies of any symptoms of dizzy spell or lightheadedness Follow labs, no indication for blood transfusion Admission and Anticipated Discharge Date Admission Date: July 28, 2020 Subjective Follow-up visit for status post lumbar decompression surgery. Patient sitting on edge of the bed, said she is doing good, worked with physical therapy with walker, Managed to ambulate with minimal back pain Wants to have the Arguelles catheter taken out No shortness of breath no dyspnea on exertion, no cough no fever or chills JUSTIN drain present draining serosanguineous fluid Review of Systems Review of Systems: All systems reviewed & are unremarkable except as noted in Subjective Physical Exam Physical Exam: Physical exam: General: No acute distress, alert awake oriented x3 HEENT: PERRLA, EOMI, Heart: Regular S1-S2, no carotid bruit, no JVD, no lower extremity edema Lungs: Clear to auscultate, no wheeze or rales Abdomen: Soft nontender, no organomegaly Extremity: Status post lumbar decompression surgery/JUSTIN drain present Neuro: No focal neurological deficit normal speech, normal visual field, Motor strength : normal both upper and lower extremity, sensation intact Psych: Alert awake oriented x3, normal affect Results & Data Results & Data ([facility]) Vital Signs (Past 12 Hours) Vital Signs Temp Pulse Pulse Resp BP Pulse Ox 07/30/20 11:00 94 07/30/20 07:14 36.8 C 65 16 109/63 92 07/30/20 03:33 36.6 C 62 16 114/66 98
[2020-07-30] MEDS: DOCUSATE SODIUM/SENNA 50/8.6MG TAB PO SCH (20:16)
[2020-07-30] MEDS: DOXYCYCLINE HYCLATE 50 MG CAP PO SCH (20:16)
[2020-07-31] MEDS: POLYETHYLENE (MIRALAX) 17 GM PACK PO SCH ×4 (05:37→23:53)
[2020-07-31] MEDS: traMADol HCL 50 MG TABLET PO PRN ×3 (05:37→17:42)
[2020-07-31] MEDS: oxyCODONE HCL IR 5 MG TAB (IMMEDIATE RELEASE) PO PRN ×2 (07:59→20:03)
[2020-07-31] MEDS: LIDOCAINE 5% 1 PATCH TD SCH (08:00)
[2020-07-31] MEDS: TIMOLOL GFS 0.5% OPH SOLN 74 DROPS/5 ML BTL OPR SCH (08:00)
[2020-07-31] MEDS: GABAPENTIN 600 MG TAB PO SCH ×3 (08:00→20:05)
[2020-07-31] MEDS: ROSUVASTATIN CALCIUM 10 MG TAB PO SCH (08:01)
--- NOTE | 2020-07-31 08:39 | Orthopedic Progress Note ---
Date of Service July 31, 2020 Assessment & Plan (1) Neurogenic claudication due to lumbar spinal stenosis: Admission and Anticipated Discharge Date Admission Date: July 28, 2020 This time and will continue with physical therapy monitor JUSTIN output. Hopefully she can discharge home Tuesday or Tuesday with home health. Subjective Patient's back pain is controlled leg pain improved Physical Exam Physical Exam: Patient is good strength testing appears comfortable. Results & Data ([facility]) Vital Signs (Past 12 Hours) Vital Signs Temp Pulse Resp BP Pulse Ox 07/31/20 07:40 37.2 C 77 15 110/68 90 07/30/20 22:48 37.5 C 75 16 98/59 L 92
--- NOTE | 2020-07-31 16:12 | Hospitalist Progress Note ---
Date of Service July 31, 2020 Assessment & Plan (1) Lumbar radiculopathy: hx lumbar spinal stenosis/peripheral neuropathy as per records Status post lumbar decompression and fusion surgery Postoperative day2 Appreciate orthopedics input. Patient has been recovering well on post surgery, back pain /radicular pain has significantly improved after surgery Plan to discharge home in next 1 to 2 days Acute blood loss anemia: Hemoglobin drop noted from 1311 Secondary to postoperative status MARIO globin has remained stable since Admission and Anticipated Discharge Date Admission Date: July 28, 2020 Subjective Doing much better, no back pain at rest, able to participate physical therapy, Feels pain at the surgical site gets aggravated with ambulation, gets relief with pain meds No fever or chills Review of Systems Review of Systems: All systems reviewed & are unremarkable except as noted in Subjective Physical Exam Physical Exam: Physical exam: General: No acute distress, alert awake oriented x3 HEENT: PERRLA, EOMI, Heart: Regular S1-S2, no carotid bruit, no JVD, no lower extremity edema Lungs: Clear to auscultate, no wheeze or rales Abdomen: Soft nontender, no organomegaly Extremity: Status post lumbar decompression surgery/JUSTIN drain present-with minimal drainage Neuro: No focal neurological deficit normal speech, normal visual field, Motor strength : normal both upper and lower extremity, sensation intact Psych: Alert awake oriented x3, normal affect Results & Data Results & Data ([facility]) Vital Signs (Past 12 Hours) Vital Signs Temp Pulse Resp BP Pulse Ox 07/31/20 15:08 36.5 C 77 16 128/77 90 07/31/20 07:40 37.2 C 77 15 110/68 90
[2020-07-31] MEDS: DOXYCYCLINE HYCLATE 50 MG CAP PO SCH (20:05)
[2020-07-31] MEDS: DOCUSATE SODIUM/SENNA 50/8.6MG TAB PO SCH (20:05)
[2020-08-01] MEDS: oxyCODONE HCL IR 5 MG TAB (IMMEDIATE RELEASE) PO PRN ×3 (00:03→08:43)
[2020-08-01] MEDS: POLYETHYLENE (MIRALAX) 17 GM PACK PO SCH ×2 (05:54→12:08)
[2020-08-01 06:40] LABS: Hemoglobin 11.9 g/dL (12.0-16.0)
[2020-08-01] MEDS: ROSUVASTATIN CALCIUM 10 MG TAB PO SCH (07:57)
[2020-08-01] MEDS: TIMOLOL GFS 0.5% OPH SOLN 74 DROPS/5 ML BTL OPR SCH (07:57)
[2020-08-01] MEDS: GABAPENTIN 600 MG TAB PO SCH ×2 (07:57→13:03)
[2020-08-01] MEDS: LIDOCAINE 5% 1 PATCH TD SCH (07:58)
[2020-08-01] MEDS ORDERED: bisacodyL 5 MG TABEC PO ONE (09:59)
--- NOTE | 2020-08-01 13:29 | Discharge Summary ---
Date of Service August 01, 2020 Admission HPI Per Admitting Provider History obtained from patient and records. Medical history significant for lumbar spinal stenosis status post surgery, peripheral neuropathy, past tobacco abuse. Patient has had chronic low back pain from lumbar spinal stenosis with superimposed lumbar radiculopathy for some time now. Neurogenic claudication limiting prolonged standing and walking. Patient seen [facility] neurology outpatient. 2 days ago, patient noted right leg weakness somewhat more than usual. Usual low back pain with some pain shooting down the right leg worse on motion. No fever, no chills. No unusual incontinence as per patient. Patient was trying to get out of her recliner last night when her legs gave out causing her to fall on her right side. No chest pain, no S OB, no headache, no LOC. Patient had trouble getting up. Patient brought to the ER for evaluation by EMS. IV Decadron administered at the ER. Medical History as above Surgical History : Appendectomy, carpal tunnel surgery, parathyroid adenoma resection, back surgery, cataract surgery, tonsillectomy, SHARRI Family History : Breast cancer, hypertension Personal/Social history : Past tobacco abuse, occasional EtOH intake, [employer] store employee Principal Diagnosis Lumbar spinal stenosis with neurogenic claudication Discharge Data Allergies Allergy/AdvReac Type Severity Reaction Status Date / Time prednisone AdvReac Intermediate DIZZINESS Verified 07/28/20 01:11 Consultations 07/28/20 03:48 ED Decision to Admit Stat 07/28/20 06:43 Consult Orthopedic Surgery Routine Procedures Performed Operation Date: 07/29/20 13:45 Actual Procedures p L4-L5, L5-S1 Lumbar Decompression Fusion(Not Applicable) - Dany Chau DO Ordered Studies 07/28/20 00:09 MR lumbar spine wo con Urgent 07/29/20 13:45 FL lumbar spine 2-3V Routine Hospital Course (1) Lumbar radiculopathy: hx lumbar spinal stenosis/peripheral neuropathy as per records Status post lumbar decompression and fusion surgery recovering well post op Appreciate orthopedics input. Patient has been recovering well on post surgery, back pain /radicular pain has significantly improved after surgery stable to be transferrred to rehab Acute blood loss anemia: Hemoglobin drop noted from 1311 Secondary to postoperative status H&H has remained stable since pt is discharged to [facility] today Total Time Total Time Spent Total Time Spent (In Minutes): 35 mins Total Time Includes: Examination of the Patient, Discharge Planning and Medication Reconciliation Discharge Plan Discharge Items Patient Disposition: Transfer Inpatient Rehab Fac Reason For Visit: LUMBAR RIDICULOPATHY Discharge Diagnosis: Lumbar spinal stenosis with neurogenic claudication Activity: As commented below Non-emergency contact: Primary Care Provider Call non-emergency contact if: you have any medication questions Follow-up/Referrals: Dany Chau DO [Surgeon] - Jose Antonio Wilde MD [Primary Care Provider] - 08/07/20 10:40 am (Date & Time 08/07/2020 10:40 AM Provider Jose Antonio Wilde MD Department Family Practice [facility] ) Diet: Regular Addtl Attending Provider Instructions: ACTIVITY RECOMMENDATIONS: SELF CARE INSTRUCTIONS AFTER THORACIC/LUMBAR FUSIONS 1. You may walk to your tolerance. It is good exercise for your legs and back. Expect some back and intermittent leg aches and pains. 2. You may perform "counter-top" level activities (make a sandwich, karl with a project, etc.). 3. No bending or lifting of more than 10 pounds or back twisting of any nature (roll like a log when turning in bed). 4. You may ride in a car for 20-30 minutes at a time. No driving until after your first visit with your doctor. 5. Frequent changes of position and restricting sitting to 30 minutes at a time will help limit the amount of back spasms and stiffness you may experience. 6. You may discontinue the use of ambulatory aids (cane, crutches, etc.) once your strength and confidence allow. 7. You may campus coordinator the shower and let water strike your incision when you arrive home at least once daily. Do not take a tub bath, sit in a hot tub or go into a swimming pool until after your first recheck in the office. SPECIAL CARE INSTRUCTIONS: VERY IMPORTANT TO READ AND REVIEW A. Your surgical incision has been closed with a cosmetic suture under the skin that will dissolve in about 6 weeks. In 14 days, you can use a pair of clean scissors and cut the suture that is left outside of the skin at the ends of your incision. 1. The small skin tapes can be removed 7 days after surgery if they have not fallen off by that point. 2. You may keep the wound open to air as much as possible to promote healing after post-op day number 5 unless told otherwise by your doctor. 3. If you think the wound looks like it is becoming infected (redness or worsening drainage) and/or you are experiencing fever, chill or worsening back pain and muscle spasms, contact the office so that we may evaluate you as soon as possible. B. Complications are uncommon, but please contact us if you have any signs or symptoms of: 1. wound infection (fever higher than 102.5 degrees F, redness, separation of wound, drainage, or increasing pain from the incision) 2. blood clots in legs (pain, swelling, redness and warmth in legs) 3. urinary tract infection (fever higher than 102.5 degrees F, burning upon urination or increased frequency of urination) 4. nerve problems (inability to walk on your toes or heels, numbness, loss of bowel or bladder control) 5. any other symptoms that concern you C. Please call the office at if you have any concerns or questions about your operation or recovery. D. No smoking! Smoking drastically decreases the chance of a solid fusion. E. Do not take any anti-inflammatory medications (Indocin, Advil, Motrin, Aspirin, Naprosyn, etc.) as these may inhibit the chance of a solid fusion. Tylenol is okay to take for pain. MANAGING PAIN AFTER SPINAL SURGERY 1. Narcotic medication is intended for short-term use and will be provided for surgical pain. Surgical pain usually lasts for a period of 4-6 weeks. Narcotic medication includes Percocet, Vicodin, Darvocet, Tylenol #3 or Lortab. 2. Longer-term pain is more appropriately treated with non-narcotic medication such as Tylenol ES. 3. Muscle spasm is not appropriately treated with narcotics. Muscle relaxers such as Soma, Flexeril or Skelaxin can be used along with Tylenol ES. 4. Remember that we all live with some "aches and pains". This is not unusual or uncommon after an injury or as we get older. a. Back pain is expected and may include muscle spasms for 4 to 6 weeks after surgery. The pain should gradually improve. If the pain worsens for no apparent reason, please contact the office. b. Intermittent leg pain may also be experienced and should not be concerned about unless it worsens for no apparent reason. If so, please contact the office. 5. We will provide appropriate medication within the normal guidelines of their prescribed use. We will also be very cautious and aware of potential abuse and extended duration of patients' medication needs. a. Pain medications are for your comfort and to assist with sleep and rest so that the tissue can heal. They are not provided in order to return to normal activity and should not be used through the day. To do so or worsening pain at night can result from ongoing tissue damage and development of tolerance to the prescribed medicine. 6. Please allow 2-3 days to process refills. Prescriptions will not be mailed but must be picked up at the office. FOLLOW UP VISIT: Keep your scheduled follow-up appointment. Any questions, please call the office at . Pending Studies at Discharge: No Stand-Alone Forms: My [facility] Skilled Items Patient informed of condition?: Yes DNR: No Discharge Level of Care: Acute rehab Communicable Disease: No Discharge Prognosis: Improving Lines: None Urinary Catheter: No Medications and DC Order Prescriptions: New tramadol 50 mg tablet 50 mg PO Q6H PRN (Reason: pain, moderate) Qty: 30 RF: 0 Continued doxycycline hyclate 50 mg capsule 50 mg PO QPM RF: 0 tramadol 50 mg tablet 50 mg PO TID PRN (Reason: Pain) RF: 0 timolol maleate 0.25 % drops 1 drp OPR DAILY RF: 0 diphenhydramine-acetaminophen [Tylenol PM Extra Strength] 25-500 mg Tablet 2 tab PO HS PRN (Reason: Sleep) RF: 0 fluocinonide 0.05 % cream 1 applic TOPICAL UD RF: 0 naproxen 500 mg tablet 500 mg PO BID PRN (Reason: Pain) RF: 0 Restasis 0.05 % Dropperette See Rx Instructions .ROUTE .COMPLEX RF: 0 omega-3 fatty acids Capsule 1,000 mg PO DAILY RF: 0 rosuvastatin 10 mg tablet 10 mg PO DAILY RF: 0 Discontinued gabapentin 600 mg tablet 600 mg PO TID 90 Days Qty: 270 RF: 1 Discharge Orders: Discharge Order (Routine); Ordered 08/01/20 Ordered By: Dany Chau Admission Data Admit Date/Time: 07/28/20 16:27 Attending Provider: Angélica Hu Admit Provider: Jovan Diaz Primary Care Provider: Jose Antonio Wilde Other Providers: Jovan Diaz ; Dany Chau ; Ruma Marley ; [facility] [place] Other Interventions: Discharge Summary Assessment (RN) Last Done: 08/01/20 13:55
== END 2020-08-01 14:36 | DRG 455 ==
LOC: 2N 23:37 → ED 23:37 → 2N 07-28 06:41 → SUATTDRO 07-28 16:27 → 3N 07-28 23:26